=== PATIENT | female | born 1945 | race Caucasian/White ===

== ENCOUNTER → 2023-06-29 09:01 | Outpatient (REF) | payer BC, SELFPAY | LOC: WDC 09:01 | PROVIDERS: ATTENDING PHYSICIAN Nurse Practitioner Adult Health | DX: N63.0 Unspecified lump in unspecified breast (principal); C15.9 Malignant neoplasm of esophagus, unspecified; N63.14 Unspecified lump in the right breast, lower inner quadrant | CPT/HCPCS: 76642; 77062; 77066 ==

== ENCOUNTER → 2023-07-03 09:58 | Outpatient (REF) | payer BC, SELFPAY ==
--- NOTE | 2023-07-03 13:55 | OID.BR.INTR ---
[facility] - Initial
- -
Date of Contact: 07/03/23
Met with patient. Patient given written information on navigator services available at [facility]. Will follow up as needed per protocol.
== END ==
LOC: WDC 09:58
PROVIDERS: ATTENDING PHYSICIAN Nurse Practitioner Adult Health
DX: N63.10 Unspecified lump in the right breast, unspecified quadrant (principal); N63.14 Unspecified lump in the right breast, lower inner quadrant
CPT/HCPCS: 88305; 19083; 77065; 88341; 88360; A4648

== ENCOUNTER → 2024-12-27 07:22 | Outpatient (REF) | payer OTHER, SELFPAY | LOC: RAD 07:22 | PROVIDERS: ATTENDING PHYSICIAN Student in an Organized Health Care Education/Training Program; FAMILY PHYSICIAN Nurse Practitioner Adult Health | DX: C15.3 Malignant neoplasm of upper third of esophagus (principal) | CPT/HCPCS: 71260; Q9967 ==